=== PATIENT | male | born 1945 | race Caucasian/White ===

== ENCOUNTER 2016-05-29 20:57 | Emergency (ER) | payer OTHER ==
[~2016-05-29] VITALS: Ht 177.8 cm; Wt 91.6 kg
[~2016-05-29 20:57] MED LIST: IBUP800T23 PO; LORTA5 PO
[2016-05-29 21:06] VITALS: BP 113/63; PULSE 55; RESP 16; TEMP 98.2; O2SAT 97
--- NOTE | 2016-05-29 22:05 | PD ---
HPI . [place] in right thumb Chief Complaint: Foreign Body Time Seen by Provider: 22:05 Travel History International Travel<30 days: No Contact w/Intl Traveler<30days: No Traveled to known affect area: No History of Present Illness HPI 70-year-old male with no significant past history here with complaints of a right thumb injury secondary fishhook. Patient was out fishing and got the hook stuck in his thumb. He went ahead and cut the hook and there is now part of the hook and janine stuck in his right thumb. He admits to pain at the site. He is uncertain about his tetanus vaccine. Other complaints. He is right-hand dominant [facility] Past Medical History Medical History: Denies Significant Hx Diminished Hearing: No Tetanus Vaccination: < 5 Years Influenza Vaccination: No Social History Alcohol Use: Yes (Occ.) Tobacco Use: No Substance Use: No Allergies-Medications (Allergen,Severity, Reaction): Coded Allergies: Penicillin (Verified Allergy, Severe, Hives, vomiting, 05/29/16) Reported Meds & Prescriptions Reported Meds & Active Scripts Active Doxycycline Hyclate 100 Mg Cap 100 Mg PO BID Review of Systems General / Constitutional: No: Fever Eyes: No: Visual changes HENT: No: Headaches Cardiovascular: No: Chest Pain or Discomfort Respiratory: No: Shortness of Breath Gastrointestinal: No: Abdominal Pain Genitourinary: No: Dysuria Musculoskeletal: Positive: Pain (right thumb due to fish hook) Skin: No Rash Neurologic: No: Weakness Psychiatric: No: Depression Endocrine: No: Polydipsia Hematologic/Lymphatic: No: Easy Bruising Physical Exam Narrative GENERAL: AAO x 3, no acute distress, Well-nourished, well-developed patient. SKIN: Warm and dry. No visible rashes or bruising. right thumb with fish hook inside, there is a small 0.3mm part of the hook sticking out on the lateral thumb HEAD: Normocephalic and atraumatic. EYES: No scleral icterus. No injection or drainage. ENT: No nasal drainage noted. Mucous membranes pink. Airway patent. NECK: Supple, trachea midline. No JVD. CARDIOVASCULAR: Regular rate and rhythm without murmurs, gallops, or rubs. RESPIRATORY: Breath sounds equal bilaterally. No accessory muscle use. No rhonchi or rales. GASTROINTESTINAL: Abdomen soft, non-tender, nondistended. EXTREMITIES: No cyanosis or edema. BACK: Nontender without obvious deformity. No CVA tenderness. PSYCH: AAO x 3, normal affect. Data Data Last Documented VS Vital Signs Date Time Temp Pulse Resp B/P Pulse Ox O2 Delivery O2 Flow Rate FiO2 05/29/16 21:06 98.2 55 16 113/63 97 Room Air Orders Lidocaine 1% Inj (50 Ml) (Xylocaine 1% I (05/29/16 22:15) Tetanus/Diphtheria Tox Adult (Tetanus/Di (05/29/16 22:30) MDM Medical Decision Making Medical Screen Exam Complete: Yes Emergency Medical Condition: Yes Medical Record Reviewed: Yes Differential Diagnosis thumb injury due to fish hook, thumb laceration, abrasion Narrative Course 70-year-old male with no significant past history here with complaints of a right thumb injury secondary fishhook. Patient was out fishing and got the hook stuck in his thumb. He went ahead and cut the hook and there is now part of the hook and janine stuck in his right thumb. He admits to pain at the site. He is uncertain about his tetanus vaccine. Other complaints. He is right-hand dominant Patient seen and examined. There is a hook in his right thumb. Digital block performed and hook was removed by forcing the janine out in the hooks natural direction. Patient tolerated without incident. We noticed that patient is up-to-date on his tetanus shot. Due to the nature of his injury we'll go head and treated with Doxil to cover Vibrio. Advised wound care daily with soap and water. Discussed that it will heal by secondary intention. There is no laceration to repair. Patient verbalized understanding of instructions, questions were answered, and thanked me for their care. I advised them if their condition worsens, please return to the nearest emergency room for further care. Procedures Procedure Narrative Removal of fish hook from right thumb Digital block performed with 1% lidocaine. 6 cc of lidocaine used to anesthetize area Thumb was completely blocked. Fish hook was forced through its natural direction with hemostat and Janine penetrated the skin and allowed removal with forceps. Patient tolerated without incident. Area was cleaned with soap and water Clean dressing was applied Diagnosis Primary Impression: Fish hook injury of right thumb Qualified Code: S69.91XA - Fish hook injury of right thumb, initial encounter Patient Instructions: General Instructions Additional Instructions: Look out for worsening signs of infection which include redness, swelling, warmth and pus drainage, as well as streaking. Please return to emergency department if your symptoms return or worsen. Follow up with your primary care provider. Take medications as prescribed. Use ibuprofen and Tylenol as needed for pain. Med/Other Pt SpecificInfo: Prescription(s) given Scripts Doxycycline Hyclate 100 Mg [id number] Mg PO BID #20 CAP Ref 0 Prov:Vargas Winkler MD 05/29/16 Disposition: 01 DISCHARGE HOME Condition: Stable Aarti Petit May 29, 2016 22:05
[2016-05-29] MEDS ORDERED: LIDOCAINE HCL 1% 50 ML VIAL INFIL ONE (22:15)
[2016-05-29] MEDS ORDERED: TETANUS/DIPHTHERIA TOXOID ADULT 0.5 ML VIAL IM ONE (22:30)
[2016-05-29] MEDS ORDERED: DOXY100C PO (22:34)
== END 2016-05-29 22:44 | disposition home or self-care (01) ==
LOC: PHEFT 20:57
DX: S61.041A Puncture wound with foreign body of right thumb without damage to nail, initial encounter (principal); W45.8XXA Other foreign body or object entering through skin, initial encounter; W26.8XXA Contact with other sharp object(s), not elsewhere classified, initial encounter; Y93.89 Activity, other specified
CPT/HCPCS: 10120